=== PATIENT | female | born 2005 | race Caucasian/White ===

== ENCOUNTER 2024-11-08 11:24 | Emergency (ER) | payer OTHER, SELFPAY ==
[2024-11-08 11:25] VITALS: BP 124/80; PULSE 112; RESP 16; TEMP 36.4; O2SAT 98; BMI 25.2
--- NOTE | 2024-11-08 11:38 | RAD_ITS ---
PROCEDURE: FOOT MIN 3 VIEWS REASON FOR EXAM: 19-year-old male, lateral and medial right foot pain. TECHNIQUE: 3 view(s) of the right foot COMPARISON: None. FINDINGS: No visible fracture. No suspicious bone lesion. Normal alignment. Soft tissues are unremarkable. RAD/Foot min 3 Views IMPRESSION: No acute fracture. If continued clinical concern for fracture, follow-up radio graph in 7-10 days could be performed to evaluate for occult fracture. Reading Location: [id number]
--- NOTE | 2024-11-08 11:38 | ED.VIS.LOWEX ---
HPI History of Present Illness HPI Narrative: 19-year-old biological male transitioning to female. Was walking down steps yesterday misstep stumbled and injured his right foot just below the ankle. Did not actually go down. No other injuries. No prior significant surgeries or fractures to his foot. Denies any other complaints. Chief Complaint: Lower Extremity Injury Informant: patient Occured/Mechanism Mechanism/Context: Yes injury and Yes blunt trauma Onset/Context/Timing Onset: Yesterday Context: Sudden Onset Timing: Continuous Quality of Pain: Dull and Aching Current Severity: Mild Maximum Severity: Mild Associated Symptoms Associated Symptoms: Negative for Parasthesia, Weakness or Loss of Funtion Narrative Narrative: 19-year-old biological male transitioning to female injured his right foot when he stumbled on steps yesterday. Complaining of discomfort to the proximal foot. Prior similar symptoms: No Recent Illness/Hospitalization: No PFSH PFSH Medical History no medical history no medical history Home Medications ?Medication ?Instructions ?Recorded ?Last Taken ?Type escitalopram oxalate 10 mg tablet 10 mg PO DAILY 11/08/24 Unknown History (Lexapro) estradioL 11/08/24 Unknown History methylphenidate HCl 36 mg 36 mg PO DAILY 11/08/24 Unknown History tablet,extended release 24 hr (Concerta) proGESTerone 11/08/24 Unknown History spironolactone 100 mg tablet 100 mg PO DAILY 11/08/24 Unknown History Allergy/AdvReac Type Severity Reaction Status Date / Time No Known Allergies Allergy Verified 11/08/24 11:27 Social History Smoking Status: Unknown if ever smoked ROS ROS ED ROS Narrative Denies recent illness. Constitutional Constitutional ED: Denies chills or fever(s) Eyes Eyes: Denies blurry vision Cardiovascular Cardiovascular: Denies chest pain Respiratory/Chest Respiratory/Chest: Denies cough Gastrointestinal Gastrointestinal: Denies abdominal pain Genitourinary Genitourinary ED: Denies dysuria or hematuria Musculoskeletal Musculoskeletal: Denies arthralgias or back pain Integumentary Denies abscess or Abrasions Neurologic Neurologic: Denies headache(s) Psychiatric Psychiatric: Denies anxiety Endocrine Endocrinology: Denies polydipsia Hematologic/Lymphatic Hematologic/Lymphatic: Denies easy bleeding, easy bruising or lymphadenopathy Allergic/Immunologic Allergic/Immunologic ED: Denies mouth swelling, tongue swelling or urticaria EXAM Physical Exam Narrative Exam Narrative: Well-appearing 19-year-old vital signs are stable and afebrile. No acute distress. H EENT exam pupils round reactive light. Extra motions are intact. No signs of trauma to the face or scalp. Neck and spine and back nontender. Lungs clear. Heart regular rhythm no murmur. Chest wall ribs nontender. Abdomen soft nontender. Pelvic girdle intact. Moving all 4 extremities. Neurovascularly intact. Normal range of motion. Normal strength and sensation. Right hip, knee and ankle are all nontender with normal range of motion no swelling or deformity. The Achilles tendon is intact. Normal DP pulse. He is able to wiggle his toes. No gross bony deformity. Mild tenderness on the instep and just distal to the ankle. No gross deformity. No swelling. Neurologically the patient is awake and alert. No focal motor deficits. Const Vital Signs: 11/08/24 11:25 Temperature 97.5 F L Temperature Source Temporal Pulse Rate 112 H Respiratory Rate 16 Blood Pressure 124/80 H Blood Pressure Mean 94 Pulse Ox 98 Oxygen Delivery Method Room Air Positive well nourished and well developed; Negative for obese, cachectic, contractures or unkempt General Appearance ED: well developed; Negative for unkempt, cachectic or contractures Nutritional Appearance: Negative for cachectic or obese HEENT Reports moist mucous membranes normocephalic and atraumatic; Negative for trauma or tenderness Eyes PERRL Neck full ROM and supple Thyroid: Negative for tender Lymph Lymphatic: Negative for other Chest Wall inspection of chest normal and palpation of chest normal Resp No normal respiratory effort, No no retractions and No clear to auscultation bilaterally Auscultation: Negative for rales, rhonchi or wheezes Cardio regular rate, regular rhythm, S1 normal heart sound, S2 normal heart sound and no murmurs Rate: Negative for bradycardia or tachycardic Rhythm: Negative for abnormal rhythm Bruits: Negative for other GI non-tender, non-distended and no masses Palpation: soft; Negative for tender or guarding Back/Spine no CVA tenderness General Back: Negative for CVA tenderness Cervical Spine: Negative for cervical spine tenderness Thoracic Spine / Upper Back: Negative for thoracic spinal tenderness Lumbar Spine / Lower Back: Negative for lumbar spinal tenderness Extremity normal to inspection and full ROM Extremity Narrative: Mild tenderness right foot just distal to the ankle. No deformity. No bruising or swelling. Neurovascularly intact with normal touch sensation. Normal DP pulse cap refill. Normal flexion extension of the ankle and able to wiggle the toes. Achilles tendon intact. Ankle nontender nonswollen. General Extremety ED: Negative for cyanosis or edema General Extremity: Negative for cyanosis or edema Neuro oriented x3, CN's II-XII intact bilaterally and moves all extremities Sensorium / Orientation: alert, oriented to person, oriented to place and oriented to time; Negative for orientation impaired, confused, lethargic or stuporous Motor Exam: strength 5/5 throughout Psych mental status grossly normal Appearance: Negative for unkempt Speech: No other Mood & Affect: Negative for anxious Skin no wounds Lesions: no lesions Rashes: no rashes Trauma: Negative for abrasion, laceration or puncture MDM MDM MDM Narrative Medical decision making narrative: 19-year-old patient with right foot injury on steps x-ray being obtained. Mild tenderness on exam. Did not want a thing for pain. Repeat exam 11:50 AM unchanged. We went over the x-rays. Patient already has crutches. Declined a postop shoe. We discussed care for foot sprain. History & Record Review Discussion w/independent historian: Patient and Friend Radiography Diagnostic Testing: Right foot x-ray, 3 views, interpreted by myself shows Discharge Plan Triage Chief Complaint: Lower Extremity Injury ED Provider: Kevin Bourne Dx/Rx/DC Orders Clinical Impression: Foot sprain Instructions: ED Foot Sprain Prescriptions: No Action estradioL 6 mg tablet spironolactone 100 mg tablet 100 mg PO DAILY proGESTerone 100 mg tablet methylphenidate HCl [Concerta] 36 mg tablet extended release 24hr 36 mg PO DAILY escitalopram oxalate [Lexapro] 10 mg tablet 10 mg PO DAILY Primary Care Provider: CHARO KRAUSE Referrals: Juanjose Juan DPM [Med Staff - Active Staff] - 10-14 Days if not better Activity Restrictions/Additional Instructions: Ice to decrease pain and swelling. Elevate. Motrin for pain and swelling and Tylenol for pain. Your x-rays look good. No broken bones. Nothing dislocated. Most likely just a sprain or injury to the soft tissue of your foot. This should progressively get better over the next 1 to 2 weeks. If not get it reevaluated. Print Language: Burkinan Disposition Disposition: Home, Self Care
== END 2024-11-08 12:05 | disposition home or self-care (01) ==
LOC: ED 11:54
PROVIDERS: Emergency Provider Emergency Medicine; Visit Provider Emergency Medicine
DX: S93.601A Unspecified sprain of right foot, initial encounter (principal); W18.43XA Slipping, tripping and stumbling without falling due to stepping from one level to another, initial encounter; F64.0 Transsexualism
CPT/HCPCS: 73630; 99282